=== PATIENT | male | born 1955 | race Hispanic/Latino ===

== ENCOUNTER 2017-10-31 15:37 | Emergency (ER) | payer SELFPAY ==
[~2017-10-31] VITALS: Ht 172.7 cm; Wt 92.1 kg
[2017-10-31 17:24] LABS: BILIRUBIN,URINE NEGATIVE (NEGATIVE); CLARITY,URINE CLEAR (CLEAR); COLOR,URINE YELLOW (YELLOW); KETONES,URINE NEGATIVE (NEGATIVE); LEUKOCYTE ESTERASE ,URINE NEGATIVE (NEGATIVE); NITRITE,URINE NEGATIVE (NEGATIVE); PROTEIN,URINE DIPSTICK 1+ (NEGATIVE); URINE UROBILINOGEN 1 mg/dL (0.2 - 1)
[2017-10-31 17:34] LABS: AMORPHOUS SEDIMENT,URINE FEW (FEW); BACTERIA,URINE RARE /HPF; HYALINE CASTS 0-1 (0-1); MUCUS,URINE FEW (RARE); RBC,URINE 0-5 /HPF (0-5); WBC,URINE (MAN) 0-5 /HPF (0-5)
[2017-10-31 18:01] LABS: BASOPHILS % 0.3 % (0.0-1.0); HEMATOCRIT 40.8 % (38.2-49.6); HEMOGLOBIN 14.2 g/dL (14.0-18.0); LYMPHOCYTES # (AUTO) 0.9 (1.0-3.2); LYMPHOCYTES % 8.9 % (18.0-39.1); MEAN CORPUSCULAR HEMOGLOBIN 30.7 pg (28-32); MEAN CORPUSCULAR HGB CONC 34.8 g/dL (31-35); MEAN CORPUSCULAR VOLUME 88.1 fL (81-99); MONOCYTES # (AUTO) 0.7 (0.2-0.8); MONOCYTES % 7.4 % (4.4-11.3); NEUTROPHILS # (AUTO) 8.1 (2.1-6.9); NEUTROPHILS % 82.9 % (38.7-80.0); PLATELET COUNT 161 x10e3/uL (140-360); RED BLOOD COUNT 4.63 x10e6/uL (4.3-5.7); RED CELL DISTRIBUTION WIDTH 13.3 % (11.7-14.4)
[2017-10-31 18:19] LABS: ALANINE AMINOTRANSFERASE 36 IU/L (0-55); ALBUMIN 3.5 g/dL (3.5-5.0); ALBUMIN/GLOBULIN RATIO 0.9 (0.8-2.0); ALKALINE PHOSPHATASE 90 IU/L (40-150); AMYLASE 66 U/L (25-125); ANION GAP 12.3 mmol/L (8-16); BLOOD UREA NITROGEN 16 mg/dL (7-26); BUN/CREATININE RATIO 16 (6-25); CALCIUM 8.9 mg/dL (8.4-10.2); CARBON DIOXIDE 22 mmol/L (22-29); CHLORIDE 103 mmol/L (98-107); CREATININE, SERUM 0.97 mg/dL (0.72-1.25); EST GLOMERULAR FILTRATION RATE > 60 ML/MIN (60-); GLUCOSE 247 mg/dL (74-118); LIPASE 25 U/L (8-78); POTASSIUM 4.3 mmol/L (3.5-5.1); SODIUM 133 mmol/L (136-145)
--- NOTE | 2017-10-31 18:49 | Diagnostic Imaging Report ---
PROCEDURE:X-RAY ABDOMEN, ACUTE SERIES COMPARISON:None. INDICATIONS:ABDOMINAL PAIN FINDINGS: BOWEL GAS PATTERN:Non-specific bowel gas pattern. FREE AIR:None. CALCIFICATIONS:None significant. LUNGS:Normal for age. MEDIASTINUM:Normal for age. PLEURA:Normal. OTHER:Negative. CONCLUSION: Nonspecific, nonobstructive bowel gas pattern. Celena Perez M.D. Dictated by: Celena Perez M.D. on 10/31/2017 at 18:52 Electronically approved by: Celena Perez M.D. on 10/31/2017 at 18:52
[2017-10-31] MEDS ORDERED: MORPHINE SULFATE 2 MG/ML SYR IV STA (19:29)
[2017-10-31] MEDS ORDERED: ONDANSETRON HCL INJ 2 MG/ML VIAL IV STA (19:29)
[2017-10-31] MEDS ORDERED: SODIUM CHLORIDE 0.9% 1000ML 1,000 ML IV ONE (19:30)
[2017-10-31] MEDS ORDERED: DIATRIZOATE MEGL/DIATRIZOA SOD 30 ML BTL PO ONE (19:38)
[2017-10-31] MEDS ORDERED: IOPAMIDOL 370 MG/ML 200 ML INFUS..BTL INJ ONE (20:23)
[2017-10-31] MEDS ORDERED: SODIUM CHLORIDE 0.9% 50ML 50 ML ONE (20:23)
[2017-10-31] MEDS ORDERED: METFORMIN HCL500 MG PO (20:53)
[2017-10-31] MEDS ORDERED: VASOTEC5 MG PO (20:53)
--- NOTE | 2017-10-31 21:43 | Diagnostic Imaging Report ---
EXAM: CT ABDOMEN/PELVIS W DATE: 10/31/2017 7:29 PM INDICATION: \S\ABD PAIN, H/O BOWEL OBSTRUCTION \S\[id number] \S\2046 \S\Y COMPARISON: 07/01/2015 TECHNIQUE: The abdomen and pelvis were scanned using a multidetector helical scanner. Coronal and sagittal reformations were obtained. Routine protocol performed. IV Contrast: 100 ml Isovue 300/370 FINDINGS: LOWER THORAX: No consolidations LIVER/BILIARY: Hepatic steatosis. No masses. No ductal dilatation. GALLBLADDER: Unremarkable SPLEEN: Unremarkable PANCREAS: Unremarkable ADRENALS: No nodules KIDNEYS: Symmetric perfusion. No enhancing masses. No hydronephrosis. GI TRACT: Mild bowel wall thickening of the right colon and terminal ileum with mucosal hyperemia. Normal appendix. VESSELS: Mild atherosclerotic changes. PERITONEUM/RETROPERITONEUM: No free air or fluid LYMPH NODES: No lymphadenopathy REPRODUCTIVE ORGANS/BLADDER: Unremarkable SOFT TISSUES: Unremarkable BONES: No suspicious bone lesions. IMPRESSION: Mild enterocolitis involving the terminal ileum and right colon, likely infectious or inflammatory. Signed by: Dr Camila Barth MD on 10/31/2017 9:39 PM
[2017-10-31 22:18] VITALS: BP 122/60
== END 2017-10-31 22:50 | disposition home or self-care (01) ==
LOC: ER 15:37
DX: R10.84 Generalized abdominal pain (principal); R19.7 Diarrhea, unspecified; R11.0 Nausea; I10 Essential (primary) hypertension; E11.9 Type 2 diabetes mellitus without complications; K21.9 Gastro-esophageal reflux disease without esophagitis
CPT/HCPCS: 36415; 74022; 74177; 80053; 81001; 82150; 83690; 85025; 96374; 99284; J2270; J2405; J7030; Q9967

== ENCOUNTER 2019-07-17 10:39 | Observation (INO) | payer SELFPAY ==
[~2019-07-17] VITALS: Ht 167.6 cm; Wt 93.0 kg
[~2019-07-17 10:39] MED LIST: METFORMIN HCL500 MG PO; VASOTEC5 MG PO
--- OUTSIDE RECORDS SUMMARY | 2019-07-17 10:42 | XMS REPORT ---
Author Author Admin, [place] Organization Unknown Address Unknown Phone Unavailable PROBLEMS Condition Status Date Provider Notes Vaccine against influenza active Jatin Gandara Allergic rhinitis active Jatin Gandara Erectile dysfunction active Jatin Gandara Leg pain, bilateral active Chapo Quintanilla Hyperlipidemia, mixed active Chapo Quintanilla Hypogonadism, male active Chapo Quintanilla Reflux, esophageal active Chapo Quintanilla Morbid obesity active Chapo Quintanilla Hypertension active Chapo Quintanilla Diabetes mellitus, type II active Chapo Quintanilla ENCOUNTERS Date Type Provider Location Encounter Diagnosis - [facility] Public Health Services UNK - Ambulatory Encounter Jose Guzman [facility] Adult Medicine UNK - Ambulatory Encounter Jose Gomez [facility] Adult Medicine UNK - [facility] Adult Medicine UNK - Ambulatory Encounter Rinal Thomas [employer] [facility] Adult Medicine UNK - Ambulatory Encounter Rinal Thomas [facility] Adult Medicine UNK - Ambulatory Encounter Brittaal Thomas Beaver [facility] Adult Medicine UNK - Ambulatory Encounter Rinal Guzman [employer] [facility] Adult Medicine UNK - Ambulatory Encounter Rinemely Guzman [facility] Adult Medicine UNK - Ambulatory Encounter Jose Gomez [facility] Adult Medicine UNK - Ambulatory Encounter Rinal Guzman [facility] Adult Medicine UNK - Ambulatory Encounter Rinal Guzman [facility] Adult Medicine UNK - Ambulatory Encounter Rinal Guzman [facility] Adult Medicine UNK - Ambulatory Encounter Candelaria Fiore [facility] Transportation Superintendent UNK - Ambulatory Encounter [facility] Public Health Services UNK - Ambulatory Encounter Candelaria Mueller [facility] Adult Medicine UNK - Ambulatory Encounter Jatin Gandara Jatin Gandara [facility] Adult Medicine UNK - Ambulatory Encounter Jatin Gandara Jatin Gandara [facility] Adult Medicine UNK - Ambulatory Encounter Jatin Gandara Jatin Gandara [facility] Adult Medicine UNK - Ambulatory Encounter Jatin Gandara Jatin Romero [facility] Adult Medicine Vaccine against influenza - Ambulatory Encounter Rinal Guzman [facility] Adult Medicine UNK - [facility]ulatory [facility] - [facility] Encounter Humphrey Romero [facility] Adult Medicine UNK - Ambulatory Encounter Jatin Gandara Jatin Gandara [employer] Humphrey Gomez [facility] Adult Medicine UNK - Ambulatory Encounter Jatin Gandara Jatin Gandara [facility] Adult Medicine UNK - Ambulatory Encounter Jatin Gandara Jatin Lastine [facility] Adult Medicine UNK - Ambulatory Encounter Jatin Gandara Jatin Romero [facility] Adult Medicine Erectile dysfunctionAllergic rhinitis - Ambulatory Encounter Jatin Gandara Jatin Gandara [facility] Adult Medicine UNK - Ambulatory Encounter Chapo Quintanilla [employer] Jatin Gandara [facility] Adult Medicine UNK - Ambulatory Encounter Jatin Gandara [facility] Adult Medicine UNK - Ambulatory Encounter Chapo Quintanilla [facility] Adult Medicine UNK - Ambulatory Encounter Chapo Quintanilla Yeimy Arce [facility] Adult Medicine Hypogonadism, maleHyperlipidemia, mixedLeg pain, bilateral - Ambulatory Encounter Chapo NavaLoglindsay [facility] Adult Medicine UNK - Ambulatory Encounter Deborah Quintanilla [facility] - Ambulatory Encounter Chapo Quintanilla [facility] Adult Medicine [facility] - Ambulatory Encounter Chapo Gomez [facility] Adult Medicine Diabetes mellitus, type IIHypertensionMorbid obesityReflux, esophageal - Ambulatory Encounter Jatin Cardenas [facility] Dental K - Ambulatory Encounter Jatin Savage [facility] Dental [facility] VITAL SIGNS No Information Available Allergies No Known Allergy Information REASON FOR REFERRAL No Information Available RESULTS Date Observation Value Provider Reference Range Interpretation Location hemoglobin A1C, blood, as % of total hemoglobin 8.3 % [facility] 4.8-5.6 High blood glucose, random 200 mg/dL Rinal [facility] hemoglobin A1C, blood, as % of total hemoglobin 8.2 % [employer] 4.8-5.6 High hemoglobin A1C, blood, as % of total hemoglobin 8.8 % [facility] 4.8-5.6 High microalbumin/creatinine ratio, urine <6.6 mg/g creat [employer] 0.0-30.0 " microalbumin/total urine volume <3.0 ug/mL [employer] Not Estab. " creatinine, random, urine 45.2 mg/dL [employer] Not Estab. hemoglobin A1C, blood, as % of total hemoglobin 9.8 % [facility] 4.8-5.6 High " alanine aminotransferase (SGPT), serum 61 1/L [facility] 0-44 High " aspartate aminotransferase (SGOT), serum 32 1/L [facility] 0-40 " alkaline phosphatase, serum 159 1/L [facility] 39-117 High " bilirubin, serum, total 0.4 mg/dL [employer] 0.0-1.2 " albumin/globulin ratio, serum 1.5 [employer] 1.2-2.2 " globulin, serum 2.8 [employer] 1.5-4.5 " albumin, serum 4.3 g/dL [employer] 3.6-4.8 " protein, total, serum 7.1 g/dL [employer] 6.0-8.5 " calcium, serum 9.1 mg/dL [employer] 8.6-10.2 " carbon dioxide, venous blood 25 mmol/L [facility] 20-29 " chloride, serum 95 mmol/L [employer] 96-106 Low " potassium, serum 4.8 mmol/L [facility] 3.5-5.2 " sodium, serum 134 mmol/L [employer] 134-144 " urea nitrogen/creatinine ratio, serum 14 [facility] 10-24 " eGFR if 105 mL/min/((173/100).m2) [facility] >59 " Estimated Glomerular Filtration Rate (calc) 91 mL/min/((173/100).m2) [employer] >59 " creatinine, serum 0.91 mg/dL [facility] 0.76-1.27 " urea nitrogen, blood 13 mg/dL [facility] 8-27 " blood glucose, random 360 mg/dL [facility] 65-99 High blood glucose, random 251 mg/dL Josie Romero hemoglobin A1C, blood, as % of total hemoglobin 8.2 % [facility] 4.8-5.6 High " testosterone, serum, free 5.9 pg/mL [employer] 6.6-18.1 Low " testosterone, total 317 ng/dL [facility] 264-916 " LDL cholesterol, serum 103 mg/dL [facility] 0-99 High " very low density lipoproteins 31 mg/dL [facility] 5-40 " HDL cholesterol, serum 37 mg/dL [facility] >39 Low " triglyceride, serum, fasting 156 mg/dL [facility] 0-149 High " cholesterol, serum 171 mg/dL [facility] 100-199 " alanine aminotransferase (SGPT), serum 74 1/L [facility] 0-44 High " aspartate aminotransferase (SGOT), serum 43 1/L [facility] 0-40 High " alkaline phosphatase, serum 114 1/L [facility] 39-117 " bilirubin, serum, total 0.5 mg/dL [employer] 0.0-1.2 " albumin/globulin ratio, serum 1.3 [employer] 1.2-2.2 " globulin, serum 3.2 [employer] 1.5-4.5 " albumin, serum 4.3 g/dL [employer] 3.6-4.8 " protein, total, serum 7.5 g/dL [employer] 6.0-8.5 " calcium, serum 9.5 mg/dL [employer] 8.6-10.2 " carbon dioxide, venous blood 22 mmol/L [employer] 20-29 " chloride, serum 95 mmol/L [facility] 96-106 Low " potassium, serum 4.9 mmol/L [facility] 3.5-5.2 " sodium, serum 136 mmol/L [facility] 134-144 " urea nitrogen/creatinine ratio, serum 11 [employer] 10-24 " eGFR if 96 mL/min/((173/100).m2) [facility] >59 " Estimated Glomerular Filtration Rate (calc) 83 mL/min/((173/100).m2) [employer] >59 " creatinine, serum 0.98 mg/dL [facility] 0.76-1.27 " urea nitrogen, blood 11 mg/dL [facility] 8-27 " blood glucose, random 220 mg/dL [facility] 65-99 High hepatitis B surface antigen Negative [employer] Negative " thyroxine, serum, free 1.15 ng/dL [facility] 0.82-1.77 " thyroid stimulating hormone, serum 5.210 u[iU]/mL [facility] 0.450-4.500 High " hepatitis C antibody, serum 0.2 [employer] 0.0-0.9 " HIV-CMIA (Chemiluminescent Microparticle Immuno Assay) Non Reactive [employer] Non Reactive " vitamin D 25-hydroxy, serum 15.1 ng/mL [facility] 30.0-100.0 Low " rapid plasma reagin antibody, serum Non Reactive [employer] Non Reactive " hemoglobin A1C, blood, as % of total hemoglobin 9.2 % [facility] 4.8-5.6 High " prostate specific antigen 0.4 ng/mL [employer] 0.0-4.0 " testosterone, serum, free 4.7 pg/mL [employer] 6.6-18.1 Low " testosterone, total 254 ng/dL [facility] 264-916 Low " LDL cholesterol, serum 122 mg/dL [facility] 0-99 High " very low density lipoproteins 70 mg/dL [facility] 5-40 High " HDL cholesterol, serum 36 mg/dL [facility] >39 Low " triglyceride, serum, fasting 350 mg/dL [facility] 0-149 High " cholesterol, serum 228 mg/dL [facility] 100-199 High " alanine aminotransferase (SGPT), serum 52 1/L [facility] 0-44 High " aspartate aminotransferase (SGOT), serum 30 1/L [employer] 0-40 " alkaline phosphatase, serum 166 1/L [facility] 39-117 High " bilirubin, serum, total 0.3 mg/dL [employer] 0.0-1.2 " albumin/globulin ratio, serum 1.4 [employer] 1.2-2.2 " globulin, serum 3.1 [employer] 1.5-4.5 " albumin, serum 4.2 g/dL [employer] 3.6-4.8 " protein, total, serum 7.3 g/dL [employer] 6.0-8.5 " calcium, serum 9.7 mg/dL [employer] 8.6-10.2 " carbon dioxide, venous blood 24 mmol/L [employer] 18-29 " chloride, serum 98 mmol/L [employer] 96-106 " potassium, serum 4.7 mmol/L [employer] 3.5-5.2 " sodium, serum 141 mmol/L [employer] 134-144 " urea nitrogen/creatinine ratio, serum 14 [employer] 10-24 " eGFR if 96 mL/min/((173/100).m2) [facility] >59 " Estimated Glomerular Filtration Rate (calc) 83 mL/min/((173/100).m2) [employer] >59 " creatinine, serum 0.98 mg/dL [facility] 0.76-1.27 " urea nitrogen, blood 14 mg/dL [facility] 8-27 " blood glucose, random 220 mg/dL [facility] 65-99 High " immature granulocytes, percentage of total cells, blood 0 % [employer] Not Estab. " basophil count, absolute 0.0 x10E3/uL [facility] 0.0-0.2 " Eosinophil Absolute Count 0.1 X10E3/UL [facility] 0.0-0.4 " monocyte count, blood, automated 0.6 X10E3/UL [employer] 0.1-0.9 " lymphocyte count, blood, automated 2.2 X10E3/UL [employer] 0.7-3.1 " Absolute Neutrophils 3.4 X10E3/UL [employer] 1.4-7.0 " basophils as percent of blood leukocytes 1 % [employer] Not Estab. " eosinophils as percent of blood leukocytes 1 % [employer] Not Estab. " monocytes as percent of blood leukocytes 10 % [facility] Not Estab. " lymphocytes as percent of blood leukocytes 35 % [facility] Not Estab. " neutrophils as percent of blood leukocytes 53 % [facility] Not Estab. " platelet count 184 X10E3/UL [facility] 150-379 " red blood cell distribution width 13.9 % [facility] 12.3-15.4 " mean corpuscular hemoglobin concentration, RBC 34.7 G/DL [facility] 31.5-35.7 " mean corpuscular hemoglobin, RBC 30.6 pg [facility] 26.6-33.0 " mean corpuscular volume, RBC 88 fL [facility] 79-97 " hematocrit, blood 41.2 % [facility] 37.5-51.0 " hemoglobin, blood 14.3 g/dL [facility] 13.0-17.7 " erythrocyte (RBC) count 4.67 X10E6/UL [facility] 4.14-5.80 " leukocyte count, blood 6.4 X10E3/UL [facility] 3.4-10.8 HISTORY OF IMMUNIZATIONS No Information Available HISTORY OF MEDICATION USE Medication Instructions Dates Provider Comments GLIPIZIDE ER 2.5 MG ORAL TABLET EXTENDED RELEASE 24 HOUR take 1 tablet daily (take 30 min before your largest meal) Rinal Guzman austrian JANUVIA 100 MG ORAL TABLET take 1 tablet daily - Rinal Guzman austrian label VIAGRA 100 MG ORAL TABLET 1 By Mouth 1 hour before sex Jatin Gandara LORATADINE 10 MG ORAL TABLET 1 By Mouth once a day as needed for allergies <BRITISH LABEL> Jatin Gandara IGLUCOSE TEST STRIPS IN VITRO STRIP use for testing sugar daily Jatin Gandara MIRALAX ORAL PACKET 1 packet in 8 oz of water daily for constipation <BRITISH LABEL> Jatin Gandara MOBIC 7.5 MG ORAL TABLET 1-2 tab by mouth daily Chapo Quintanilla OMEPRAZOLE [address] TAKE ONE CAPSULE BY MOUTH EVERY DAY Chikis Bryant [employer]herence, AUGMENTIN 875-125 MG ORAL TABLET 1 by mouth twice a day - Chapo Dohertyarbeder DEXILANT 30 MG ORAL CAPSULE DELAYED RELEASE One cap By Mouth Every Day - Chapo Dohertyarbeder LISINOPRIL 10 MG ORAL TABLET 1 by mouth every day Chapo Doherytarbeder METFORMIN HCL 1000 MG ORAL TABLET 1 by mouth twice a day Brittaal Guzman austrian label SOCIAL HISTORY Date Observation Value Provider time of call 02/08/2019 8:39 AM Shantell Palencia Exercise Program Referral Roland Guzman " Weight Management Counseling Provided Roland Guzman " Nutrition intervention Roland Guzman " drug use, illicit no Humphrey Gomez " alcohol use no Humphrey Gomez " social history reviewed E&M reviewed today Humphrey Gomez " is there any chance that you could be ? No Humphrey Gomez " assessment of health literacy ([facility] 2014 Standards, 3C10) Adequate Humphrey Gomez " passive cigarette smoke exposure No Humphrey Gomez " smoking status never smoker Humphrey Gomez Exercise Program Referral Roland Beaver " Weight Management Counseling Provided Roland Beaver " Nutrition intervention T Yamisela Beaver " drug use, illicit no Yamisela Beaver " alcohol use no Yamisela Beaver " social history reviewed E&M reviewed today Yamisela Beaver " assessment of health literacy ([facility] 2014 Standards, 3C10) Adequate Yamisela Beaver " passive cigarette smoke exposure No Yamisela Beaver " smoking status never smoker Yamisela Beaver Exercise Program Referral T Rinal Guzman " Weight Management Counseling Provided T Rinal Guzman " Nutrition intervention T Rinal Guzman " drug use, illicit no Humphrey Gomez " alcohol use no Najuniorly Jason " social history reviewed E&M reviewed today Humphrey Gomez " is there any chance that you could be ? No Humphrey Gomez " assessment of health literacy ([facility] 2014 Standards, 3C10) Adequate Humphrey Gomez " passive cigarette smoke exposure Yes Humphrey Gomez " smoking status never smoker Humphrey Gomez time of call 05/04/2018 3:23 PM Shantell Palencia social history reviewed E&M reviewed today Jatin Gandara " Exercise Program Referral T Jatin Gandara " Weight Management Counseling Provided T Jatin Gandara " Nutrition intervention T Jatin Gandara " drug use, illicit no Josie Romero " alcohol use no Josie Romero " is there any chance that you could be ? No Josie Romero " assessment of health literacy ([facility] 2014 Standards, 3C10) Adequate Josie Romero " smoking status never smoker Josie Romero Exercise Program Referral T Rinal Guzman " Weight Management Counseling Provided T Rinal Guzman " Nutrition intervention T Rinal Guzman " drug use, illicit no Humphrey Gomez " alcohol use no Humphrey Gomez " social history reviewed E&M reviewed today Humphrey Gomez " is there any chance that you could be ? No Humphrey Gomez " assessment of health literacy ([facility] 2014 Standards, 3C10) Adequate Humphrey Gomez " passive cigarette smoke exposure Yes Humphrey Gomez " smoking status never smoker Humphrey Gomez Exercise Program Referral T Jatin Gandara " Weight Management Counseling Provided T Jatin Gandara " Nutrition intervention T Jatin Gandara " drug use, illicit no Channin Nick " alcohol use no Channangy Romero " is there any chance that you could be ? No Channin Nick " assessment of health literacy ([facility] 2014 Standards, 3C10) Adequate Josie Romero " smoking status never smoker Josie Romero social history reviewed E&M reviewed today Yeimy Arce " drug use, illicit no Yeimy Arce " alcohol use no Yeimy Arce " passive cigarette smoke exposure Yes Yeimy Arce " smoking status never smoker Yeimy Arce " is there any chance that you could be ? No Yeimy Arce sexual orientation Heterosexual Sandrasophia Gomez " sex at Male Humphrey Gomez " Occupation #1 ironworker apprentice Humphrey Gomez " patient considered to be homeless No Humphrey Gomez " drug use, illicit no Leisacamilocorinne Gomez " alcohol use no Leisamagaly Gomez " passive cigarette smoke exposure Yes Humphrey Gomez " smoking status never smoker Humphrey Gomez " assessment of health literacy ([facility] 2014 Standards, 3C10) Adequate Humphrey Gomez " social history reviewed E&M reviewed today Humphrey Jason " is there any chance that you could be ? No Humphrey Gomez FUNCTIONAL STATUS No Information Available MENTAL STATUS Date Observation Value Provider assessment of judgment and insight E&M intact Rinal Guzman " mental status examination: orientation E&M oriented to time, place, and person Rinal Guzman " assessment of mood and affect E&M no depression, anxiety, or agitation Rinal Guzman " Generalized Anxiety Disorder Questionnaire - Question 2 0 Humphrey Gomez " Generalized Anxiety Disorder Questionnaire - Question 1 0 Humphrey Gomez assessment of judgment and insight E&M intact Rinal Guzman " mental status examination: orientation E&M oriented to time, place, and person Rinal Guzman " assessment of mood and affect E&M no depression, anxiety, or agitation Rinal Guzman " Generalized Anxiety Disorder Questionnaire - Question 2 0 Guanako Beaver " Generalized Anxiety Disorder Questionnaire - Question 1 0 Guanako Beaver assessment of judgment and insight E&M intact Rinal Guzman " mental status examination: orientation E&M oriented to time, place, and person Rinal Guzman " assessment of mood and affect E&M no depression, anxiety, or agitation Rinal Guzman " Generalized Anxiety Disorder Questionnaire - Question 2 0 Humphrey Gomez " Generalized Anxiety Disorder Questionnaire - Question 1 0 Humphrey Gomez assessment of judgment and insight E&M intact Rinal Guzman " mental status examination: orientation E&M oriented to time, place, and person Rinemely Guzman " assessment of mood and affect E&M no depression, anxiety, or agitation Jose Guzman Generalized Anxiety Disorder Questionnaire - Question 2 0 Josie Romero " Generalized Anxiety Disorder Questionnaire - Question 1 0 Josie Romero Generalized Anxiety Disorder Questionnaire - Question 2 0 Humphrey Gomez " Generalized Anxiety Disorder Questionnaire - Question 1 0 Humphrey Gomez assessment of mood and affect E&M no depression, anxiety, or agitation Jatin Gandara " Generalized Anxiety Disorder Questionnaire - Question 2 0 Josie Romero " Generalized Anxiety Disorder Questionnaire - Question 1 0 Josie Romero mental status examination: orientation E&M oriented to time, place, and person Chapo Quintanilla " assessment of mood and affect E&M no depression, anxiety, or agitation Chapo Quintanilla " Generalized Anxiety Disorder Questionnaire - Question 2 0 Yeimy Arce " Generalized Anxiety Disorder Questionnaire - Question 1 0 Yeiym Arce assessment of judgment and insight E&M intact Chapo Quintanilla " mental status examination: orientation E&M oriented to time, place, and person Chapo Quintanilla " assessment of mood and affect E&M no depression, anxiety, or agitation Chapo Quintanilla " Generalized Anxiety Disorder Questionnaire - Question 2 0 Humphrey Gomez " Generalized Anxiety Disorder Questionnaire - Question 1 0 Humphrey Gomez MEDICAL EQUIPMENT No Information Available FAMILY HISTORY No Information Available INSURANCE PROVIDERS Payer name Policy type / Coverage type Covered republican ID Sliding Fee - Cat 1 Commercial insurance company [id number] Sliding Fee - Cat 1 Commercial insurance company [id number] ADVANCE DIRECTIVES No Information Available TREATMENT PLAN Date Name Microalb/Creat Ratio, [facility] Hemoglobin A1c Hemoglobin A1c Hemoglobin A1c Microalb/Creat Ratio, [facility] Hemoglobin A1c Microalb/Creat Ratio, [facility] Hemoglobin A1c Comp. Metabolic Panel (14) Testosterone, Free, Direct Testosterone,Free and Total Hemoglobin A1c Comp. Metabolic Panel (14) Lipid Panel PSA, Serum (Serial Monitor) Vitamin D, 25-Hydroxy Microalb/Creat Ratio, [facility] Urinalysis, Routine Testosterone, Free, Direct Testosterone,Free and Total HIV 1/2 ANTIGEN/ANTIBODY, FOURTH GENERATION W/RFL RPR, Rfx Qn RPR/Confirm TP HCV Antibody HBsAg Screen Ct, Ng, Trich vag by RUDOLPH (APTIMA) TSH Rfx on Abnormal to Free T4 Hemoglobin A1c Lipid Panel Comp. Metabolic Panel (14) CBC With Differential/Platelet Ofc Vst, Est Level III Vision Ofc Vst, Est Level III Finger Stick Glucose Ofc Vst, Est Level IV Est Patient Exp Problem - 18007 INFLUENZA VACCINE QUADRIVALENT 3 YRS PLUS IM Admin of Vaccine - Injection - 1 Ofc Vst, Est Level IV Prescription Assistance (Non-HIV) Vision Est Patient Detailed - 04587 Est Patient Exp Problem - 36035 Est Patient Exp Problem - 52474 HISTORY OF PROCEDURES Procedure Date Procedure Name Provider Procedure Notes Status Finger Stick Glucose Rinal Guzman completed GOALS No Information Available HEALTH CONCERNS No Information Available
--- OUTSIDE RECORDS SUMMARY | 2019-07-17 10:42 | XMS REPORT ---
Author Author Admin, [place] Organization Unknown Address Unknown Phone Unavailable PROBLEMS [...] Provider Location Encounter Diagnosis - Ambulatory Encounter Jose Guzman [facility] UN[place] - Ambulatory Encounter Jose Gomez [facility] Adult [facility] UNK - Ambulatory Encounter Jose Guzman [facility] Adult Medicine UNK - Ambulatory Encounter Rinal Thomas [facility] Adult Medicine UNK - Ambulatory Encounter Jose Guzman [facility] Adult Medicine UNK - Ambulatory Encounter Shantell Palencia [facility] Public Health Services UNK - Ambulatory Encounter Rinemely Guzman [facility] Adult Medicine UNK - [facility] UNK - [facility] - [facility] Encounter Rinal Thomas [facility] Adult Medicine UNK - Ambulatory Encounter Rinal Guzman [facility] Adult Medicine UNK - Ambulatory Encounter Rinal Guzman Kennalouis Beaver LM Adult Medicine UNK - Ambulatory Encounter Rinal Guzman [facility] Adult Medicine UNK - Ambulatory Encounter Rinal Guzman [facility] Adult Medicine UNK - Ambulatory Encounter Rinal Guzman Humphrey Gomez LM Adult Medicine UNK - Ambulatory Encounter Rinal Guzman [facility] Adult Medicine UNK - Ambulatory Encounter Rinal Guzman [facility] Adult Medicine UNK - Ambulatory Encounter Rinal Guzman [facility] LM Adult Medicine UNK - Ambulatory Encounter Candelaria Fiore [facility] Clinical Supervisor UNK - Ambulatory Encounter Shantell Palencia [facility] Public Health Services UNK - Ambulatory Encounter Candelaria Vences [facility] Adult Medicine UNK - Ambulatory Encounter Jatin Archer LM Adult Medicine UNK - Ambulatory Encounter Jatin Gandara [facility] Adult Medicine UNK - Ambulatory Encounter Jatin Gandara [facility] Adult Medicine UNK - Ambulatory Encounter Jatin Romero [facility] Adult Medicine Vaccine against influenza - Ambulatory Encounter Rinal Guzman [facility] Adult Medicine UNK - Ambulatory Encounter Rinal Thomas Champion [facility] Adult Medicine UNK - Ambulatory Encounter Humphrey Romero [facility] Adult Medicine UNK - Ambulatory Encounter Jatin Nichol Floreszjely Jason [facility] Adult Medicine UNK - Ambulatory Encounter Jatin Gandara LM Adult Medicine UNK - Ambulatory Encounter Jatin Steiner Gandara [facility] Adult Medicine UNK - Ambulatory Encounter Jatin Romero [facility] Adult Medicine Erectile dysfunctionAllergic rhinitis - Ambulatory Encounter Jatin Steiner Gandara [facility] Adult Medicine UNK - Ambulatory Encounter Chapo Nava[facility]ic Jatin Lastine Jatin Gandara LM Adult Medicine UNK - Ambulatory Encounter Jatin Lastine LM Adult Medicine UNK - Ambulatory Encounter Chapo Quintanilla [facility] Adult Medicine UNK - Ambulatory Encounter Chapo Arce [facility] Adult Medicine Hypogonadism, maleHyperlipidemia, mixedLeg pain, bilateral - Ambulatory Encounter Chapo Archer [facility] Adult Medicine UNK - Ambulatory Encounter Deborah Quintanilla [facility] UNK - Ambulatory Encounter Chapo Quintanilla [facility] Adult Medicine UNK - Ambulatory Encounter Chapo Gomez [facility] Adult [facility] Diabetes mellitus, type IIHypertensionMorbid obesityReflux, esophageal - Ambulatory Encounter Jatin Cardenas LM Dental UNK - Ambulatory Encounter Jatin Savage [facility] Dental UNK VITAL SIGNS No Information Available Allergies No Known Allergy Information REASON FOR REFERRAL No Information Available RESULTS Date Observation Value Provider Reference Range Interpretation Location microalbumin/creatinine ratio, urine 4.4 MG/G CREAT [facility] 0.0-30.0 " microalbumin/total urine volume 4.0 mg/L [facility] Not Estab. " creatinine, random, urine 91.4 mg/dL [facility] Not Estab. hemoglobin A1C, blood, as % of total hemoglobin 7.6 % [facility] 4.8-5.6 High hemoglobin A1C, blood, as % of total hemoglobin 8.3 % [facility] 4.8-5.6 High blood glucose, random 200 mg/dL [facility] hemoglobin A1C, blood, as % of total [...] MEDICATION USE Medication Instructions Dates Provider Comments TESSALON PERLES 100 MG ORAL CAPSULE 1 by mouth 3 times a day as needed for [facility] DM 30-2-10 MG/5ML ORAL SYRUP take 10 mL By Mouth every 4 hours as needed for severe cough [facility] [place] GLIPIZIDE ER 2.5 MG ORAL TABLET EXTENDED RELEASE 24 HOUR take 1 tablet daily (take 30 min before your largest meal) [facility] [place] JANUVIA 100 MG ORAL TABLET take 1 tablet daily - [facility] [place] island[place] label VIAGRA 100 MG ORAL TABLET 1 By Mouth 1 hour before sex Jatin Gandara LORATADINE 10 MG ORAL TABLET 1 By Mouth once a day as needed for allergies <INDONESIAN LABEL> Jatin Gandara IGLUCOSE TEST STRIPS IN VITRO STRIP use for testing sugar daily Jatin Gandara MIRALAX ORAL PACKET 1 packet in 8 oz of water daily for constipation <INDONESIAN LABEL> Jatin Gandara MOBIC 7.5 MG ORAL [...] TABLET 1 by mouth every day Chapo Dohertyarbeder METFORMIN HCL 1000 MG ORAL TABLET 1 by mouth twice a day Rinal Guzman [place]rit[place] islander label SOCIAL HISTORY Date Observation Value Provider Exercise Program Referral T Jose Guzman " Weight Management Counseling Provided T Jose Guzman " Nutrition intervention T Jose Guzman " drug use, illicit no Humphrey Gomez " alcohol use no Humphrey Gomez " social history reviewed E&M reviewed today Humphrey Gomez " is there any chance that you could be ? No Humphrey Gomez " assessment of health literacy ([facility] 2014 Standards, 3C10) Adequate Humphrey Gomez " passive cigarette smoke exposure No Humphrey Gomez " smoking status never smoker Humphrey Gomez time of call 02/08/2019 8:39 AM Shantell Palencia Exercise Program Referral T Jose Guzman " Weight Management Counseling Provided T Jose Guzman " Nutrition intervention T Brittaal Guzman " drug use, illicit no Humphrey Gomez " alcohol use no Marvinly Jason " social history reviewed E&M reviewed today Humphrey Gomez " is there any chance that you could be ? No Humphrey Gomez " assessment of health literacy ([facility] 2014 Standards, 3C10) Adequate Humphrey Gomez " passive cigarette smoke exposure No Marvinly Jason " smoking status never smoker Humphrey Gomez Exercise Program Referral T Guanako Beaver " Weight Management Counseling Provided T Guanako Beaver " Nutrition intervention T Guanako Beaver " drug use, illicit no Guanako Beaevr " alcohol use no Yamisela Beaver " social history reviewed E&M reviewed today Guanako Beaver " assessment of health literacy ([facility] 2014 Standards, 3C10) Adequate Guanako Beaver " passive cigarette smoke exposure No Guanako Beaver " smoking status never smoker Guanako Beaver Exercise Program Referral T Rinal Guzman " Weight Management Counseling Provided T Rinal Guzman " Nutrition intervention T Rinal Guzman " drug use, illicit no Humphrey Gomez " alcohol use no Humphrey Gomez " social history reviewed E&M reviewed today Humphrey Gomez " is there any chance that you could be ? No Humphrey Gomez " assessment of health literacy ([facility] 2014 Standards, 3C10) Adequate Humphrey Gomez " passive cigarette smoke exposure Yes Humphrey Gomez " smoking status never smoker Sandrasophia Jason time of call 05/04/2018 3:23 PM Shantell [...] Josie Romero " assessment of health literacy ([facility] 2014 Standards, 3C10) Adequate Josie Romero " smoking status never smoker Josie Romero Exercise Program Referral T Rinal Guzman " Weight Management Counseling Provided T Rinal Guzman " Nutrition intervention T Rinal Guzman " drug use, illicit no Humphrey Gomez " alcohol use no Sandrasophia Gomez " social history reviewed E&M reviewed today Marvincorinne Gomez " is there any chance that you could be ? No Humphrey Jason " assessment of health literacy ([facility] 2014 Standards, 3C10) Adequate Humphrey Gomez " passive cigarette smoke exposure Yes Humphrey Gomez " smoking status never smoker Sandrasophia Jason Exercise Program Referral T Jatin Gandara " Weight Management Counseling Provided T Jatin Gandara " Nutrition intervention T Jatin Gandara " drug use, illicit no Channin Nick " alcohol use no Channin Nick " is there any chance that you could be ? 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 No Humphrey Gomez " drug use, illicit no Humphrey Gomez " alcohol use no Humphrey Gomez " passive cigarette smoke exposure Yes Humphrey Gomez " smoking status never smoker Leisamagaly Jason " assessment of health literacy ([facility] 2014 Standards, 3C10) Adequate Marvincorinne Jason " social history reviewed E&M reviewed [...] Anxiety Disorder Questionnaire - Question 1 0 Yeimy Arce assessment of judgment and insight E&M [...] name Policy type / Coverage type Covered democrat ID Sliding Fee - Cat 1 Commercial insurance [employer] [id number] Sliding Fee - Cat 1 Commercial insurance [employer] [id number] ADVANCE DIRECTIVES No Information Available TREATMENT PLAN Date Name Hemoglobin A1c Microalb/Creat Ratio, [facility] Hemoglobin A1c Hemoglobin A1c Hemoglobin A1c Microalb/Creat Ratio, [facility] Ur Hemoglobin A1c Microalb/Creat Ratio, [facility] Hemoglobin A1c Comp. Metabolic Panel (14) Testosterone, [...] With Differential/Platelet Ofc Vst, Est Level III Ofc Vst, Est Level III Vision Ofc Vst, Est Level III Finger Stick Glucose Ofc Vst, Est Level IV Est Patient Exp Problem - 33024 INFLUENZA VACCINE QUADRIVALENT 3 YRS PLUS IM Admin of Vaccine - Injection - 1 Ofc Vst, Est Level IV Prescription Assistance (Non-HIV) Vision Est Patient Detailed - 53995 Est Patient Exp Problem - 26764 Est Patient Exp Problem - 23416 HISTORY OF PROCEDURES Procedure Date Procedure Name Provider Procedure Notes Status Finger Stick Glucose Rinal Guzman completed GOALS No Information Available HEALTH CONCERNS No Information Available
--- OUTSIDE RECORDS SUMMARY | 2019-07-17 10:42 | XMS REPORT ---
Author Author Admin, [place] Organization Unknown Address Unknown Phone Unavailable PROBLEMS [...] Encounter Diagnosis - Ambulatory Encounter Jose Guzman [facility] [place] - Ambulatory Encounter Jose Gomez [facility] UNK - Ambulatory Encounter Jose Guzman [facility] UNK - Ambulatory Encounter Rinal Thomas [facility] [place] Medicine UNK - Ambulatory Encounter Jose Guzman [facility] Adult Medicine UNK - Ambulatory Encounter Shantell Palencia [facility] Public Health Services UNK - Ambulatory Encounter Rinemely Guzman [facility] Adult Medicine UNK - Ambulatory Encounter [facility] CenterMir[facility] Medicine UNK - Ambulatory En[facility] - Ambulatory Encounter Rinal Thomas [facility] Adult Medicine UNK - Ambulatory Encounter Rinal [...] Medicine UNK - Ambulatory Encounter Candelaria Fiore [facility] Vault Teller UNK - Ambulatory Encounter Shantell Palencia [facility] Public Health Services UNK - Ambulatory Encounter Candelaria Vences [facility] Adult Medicine UNK - Ambulatory Encounter Jatin Archer LM Adult Medicine UNK - Ambulatory Encounter Jatin Gandara [facility] Adult Medicine UNK - Ambulatory Encounter Jatin Gandara [facility] Adult Medicine UNK - Ambulatory Encounter Jatin Romero [facility] Adult Medicine Vaccine against influenza - Ambulatory Encounter Rinal Guzman [facility] Adult Medicine UNK - Ambulatory Encounter Rinal Thomas Champion [facility] Adult Medicine UNK - Ambulatory Encounter Humphrey Romero [facility] Adult Medicine UNK - Ambulatory Encounter Jatin Nichol Floreszjely Jason [facility] Adult Medicine UNK - Ambulatory Encounter Jatin Gandara LM Adult Medicine UNK - Ambulatory Encounter Jatin Steiner Gandara [facility] Adult Medicine UNK - Ambulatory Encounter Jatin Romero [facility] Adult Medicine Erectile dysfunctionAllergic rhinitis - Ambulatory Encounter Jatin Steiner Gandara [facility] Adult Medicine UNK - Ambulatory Encounter Chapo [facility] Jatin Lastine Jatin Gandara LM Adult Medicine UNK - Ambulatory Encounter Jatin aLstine LM Adult Medicine UNK - Ambulatory Encounter Chapo Quintanilla [facility] Adult Medicine UNK - Ambulatory Encounter Chapo Arce [facility] Adult Medicine Hypogonadism, maleHyperlipidemia, mixedLeg pain, bilateral - Ambulatory Encounter Chapo Archer [facility] Adult Medicine UNK - Ambulatory Encounter Deborah Quintanilla [facility] UNK - Ambulatory Encounter Chapo Quintanilla [facility] Adult Medicine UNK - Ambulatory Encounter Chapo Gomez [facility] Adult Medicine Diabetes mellitus, type IIHypertensionMorbid obesityReflux, esophageal - Ambulatory Encounter Jatin Cardenas LM Dental UNK - Ambulatory Encounter Jatin Savage [facility] Dental UNK VITAL SIGNS No Information Available [...] 4.8-5.6 High blood glucose, random 200 mg/dL [facility] Gu[facility] hemoglobin A1C, blood, as % of [...] times a day as needed for cough [facility] BROMFED DM 30-2-10 MG/5ML ORAL SYRUP take 10 mL By Mouth every 4 hours as needed for severe cough [facility] marshallese GLIPIZIDE ER 2.5 MG ORAL TABLET EXTENDED RELEASE 24 HOUR take 1 tablet daily (take 30 min before your largest meal) [facility]aSaint [facility] Centerel marshallese JANUVIA 100 MG ORAL TABLET take 1 tablet daily - [facility] marshallese label VIAGRA 100 MG ORAL TABLET 1 By Mouth 1 hour before sex Jatin Gandara LORATADINE 10 MG ORAL TABLET 1 By Mouth once a day as needed for allergies <BULGARIAN LABEL> Jatin Gandara IGLUCOSE TEST STRIPS IN VITRO STRIP use for testing sugar daily Jatin Gandara MIRALAX ORAL PACKET 1 packet in 8 oz of water daily for constipation <BULGARIAN LABEL> Jatin Gandara MOBIC 7.5 MG ORAL [...] by mouth twice a day Rinal Guzman marshallese label SOCIAL HISTORY Date Observation Value Provider [...] Humphrey Gomez " assessment of health literacy ([facility] 2014 Standards, 3C10) Adequate Humphrey [...] Humphrey Gomez " assessment of health literacy ([facility] 2014 Standards, 3C10) Adequate Humphrey Gomez " passive cigarette smoke exposure No Marvinly Jason " smoking status never smoker Humphrey Gomez Exercise Program Referral T Guanako Beaver " Weight Management Counseling Provided T Guanako Beaver " Nutrition intervention T Guanako Beaver " drug use, illicit no Guanako Beaver " alcohol use no Yamisela Beaver " social history reviewed E&M reviewed today Guanako Beaver " assessment of health literacy ([facility] 2014 Standards, 3C10) Adequate Guanako Beaver " [...] Humphrey Gomez " assessment of health literacy ([facility] 2014 Standards, 3C10) Adequate Humphrey Gomez " passive cigarette smoke exposure Yes Humphrey Gomez " smoking status never smoker Sandrasophia Jason time of call 05/04/2018 3:23 PM Shantell Palencia social history reviewed E&M reviewed today Jatin Gandara " Exercise Program Referral T Jatin Gandara " Weight Management Counseling Provided T Jtain Gandara " Nutrition intervention T Jatin Gandara " drug use, illicit no Josie Romero " alcohol use no Josie Romero " is there any chance that you could be ? 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 No Humphrey Gomez " drug use, illicit no Humphrey Gomez " alcohol use no Humphrey Gomez " passive cigarette smoke exposure Yes Humphrey Gomez " smoking status never smoker Leisamagaly Jason " assessment of health literacy ([facility] 2014 Standards, 3C10) Adequate Marvincorinne Jason " [...] name Policy type / Coverage type Covered constitution party ID Sliding Fee - Cat 1 Commercial insurance [employer] [id number] Sliding Fee - Cat 1 Commercial insurance [employer] [id number] ADVANCE DIRECTIVES No Information Available TREATMENT PLAN Date Name Hemoglobin A1c Microalb/Creat Ratio, [facility] Hemoglobin A1c Hemoglobin A1c Hemoglobin A1c Microalb/Creat Ratio, [facility] Ur Hemoglobin A1c Microalb/Creat Ratio, [facility] Hemoglobin A1c Comp. Metabolic Panel (14) Testosterone, [...] Level IV Est Patient Exp Problem - 89457 INFLUENZA VACCINE QUADRIVALENT 3 YRS PLUS IM Admin of Vaccine - Injection - 1 Ofc Vst, Est Level IV Prescription Assistance (Non-HIV) Vision Est Patient Detailed - 01922 Est Patient Exp Problem - 38853 Est Patient Exp Problem - 93750 HISTORY OF PROCEDURES Procedure Date Procedure Name Provider Procedure Notes Status Finger Stick Glucose Rinal Guzman completed GOALS No Information Available HEALTH CONCERNS No Information Available
[2019-07-17] MEDS ORDERED: SODIUM CHLORIDE 0.9% 1000ML 1,000 ML IV STA (10:48)
[2019-07-17] MEDS ORDERED: ASPIRIN 81 MG CHEW TAB PO STA (10:48)
[2019-07-17] MEDS ORDERED: ASPIRIN 81 MG CHEW TAB PO ONE ×2 (11:00→12:15)
[2019-07-17 11:09] LABS: BASOPHILS # (AUTO) 0.1 (0.0-0.1); BASOPHILS % 0.9 % (0.0-1.0); EOSINOPHILS # (AUTO) 0.2 (0.0-0.4); HEMATOCRIT 42.3 % (38.2-49.6); HEMOGLOBIN 14.5 g/dL (14.0-18.0); LYMPHOCYTES # (AUTO) 2.1 (1.0-3.2); MEAN CORPUSCULAR HEMOGLOBIN 30.5 pg (28-32); MEAN CORPUSCULAR HGB CONC 34.3 g/dL (31-35); MEAN CORPUSCULAR VOLUME 88.9 fL (81-99); MONOCYTES # (AUTO) 0.5 (0.2-0.8); NEUTROPHILS # (AUTO) 4.7 (2.1-6.9); NEUTROPHILS % 61.8 % (38.7-80.0); PLATELET COUNT 219 x10e3/uL (140-360); RED BLOOD COUNT 4.76 x10e6/uL (4.3-5.7); RED CELL DISTRIBUTION WIDTH 12.8 % (11.7-14.4)
[2019-07-17 11:40] LABS: ALANINE AMINOTRANSFERASE 50 IU/L (0-55); ALBUMIN 3.8 g/dL (3.5-5.0); ALBUMIN/GLOBULIN RATIO 0.9 (0.8-2.0); ALKALINE PHOSPHATASE 131 IU/L (40-150); ANION GAP 13.7 mmol/L (8-16); BLOOD UREA NITROGEN 10 mg/dL (7-26); BUN/CREATININE RATIO 11 (6-25); CALCIUM 9.1 mg/dL (8.4-10.2); CARBON DIOXIDE 22 mmol/L (22-29); CHLORIDE 102 mmol/L (98-107); CREATINE KINASE 62 IU/L (30-200); EST GLOMERULAR FILTRATION RATE > 60 ML/MIN (60-); GLUCOSE 179 mg/dL (74-118); POTASSIUM 4.7 mmol/L (3.5-5.1); SODIUM 133 mmol/L (136-145)
--- NOTE | 2019-07-17 11:43 | Diagnostic Imaging Report ---
EXAMINATION: PA and lateral views of the chest. COMPARISON: None CLINICAL HISTORY: Left-sided chest pain DISCUSSION: Lung volumes are low with patchy opacities in the lung bases. No pleural effusion or pneumothorax. Mild enlargement of the cardiac silhouette with tortuous thoracic aorta. No overt pulmonary edema. No acute osseous abnormalities. IMPRESSION: Low lung volumes with vascular crowding or subsegmental atelectasis in the bases. Enlargement of the cardiac silhouette, likely accentuated by low lung volumes. Signed by: Dr. Chapo Kirby M.D. on 07/17/2019 11:41 AM
[2019-07-17] MEDS ORDERED: ONDANSETRON HCL INJ 2MG/ML 2ML 2 MG/ML VIAL IV PRN (12:15)
[2019-07-17] MEDS ORDERED: JANUVIA100 MG (12:31)
[2019-07-17] MEDS ORDERED: BROMPHENIR-PSE118 ML (12:31)
[2019-07-17] MEDS ORDERED: METFORMIN HCL1000 MG (12:31)
[2019-07-17] MEDS ORDERED: LISINOPRIL10 MG (12:31)
[2019-07-17] MEDS ORDERED: BENZONATATE100 MG (12:31)
[2019-07-17] MEDS ORDERED: GLIPIZIDE ER2.5 MG (12:31)
[2019-07-17] MEDS ORDERED: OMEPRAZOLE40 MG (12:31)
[2019-07-17] MEDS: MORPHINE SULFATE INJ 4 MG/ML INJ 1ML IV PRN ×2 (12:43→19:38)
--- NOTE | 2019-07-17 14:31 | NUR ---
COOK CHILI IN ROOM
[2019-07-17] MEDS ORDERED: DEXTROSE 50% SYRINGE 50 ML IV PRN (16:00)
[2019-07-17] MEDS: INSULIN REGULAR, HUMAN 100 UNIT/1 ML 3ML VIAL SQ SCH ×2 (16:30→21:00)
[2019-07-17 17:00] VITALS: BP 137/80
[2019-07-17 17:42] VITALS: BP 137/80
[2019-07-17 18:09] VITALS: BP 137/80
[2019-07-17 19:37] LABS: CREATINE KINASE 60 IU/L (30-200)
--- NOTE | 2019-07-17 19:39 | NUR ---
REPORT RECEIVED FROM DAY RN. PT IS ALERT AND ORIENTED X3. PT IS ARMENIAN SPEAKING. RESPIRATIONS EVEN And UNLABORED. 20 G SL IN LEFT HAND INTACT. PT RESTING IN BED SEMI-FOWLERS POSITION. PT REPORT CHEST PAIN 5/10 ON LEFT SIDE OF CHEST WHICH WORSE WHEN TAKE BREATH IN. PT REPORTS ON LISINOPRIL 10MG DAILY AT 12 N. PT DID NOT TAKE MED TODAY.CALL LIGHT WITHIN REACH. BED LOCKED IN LOW POSITION. TELE MONITOR ON.
--- NOTE | 2019-07-17 19:50 | NUR ---
PT REPORT CHEST PAIN WAS 5/10. MORPHINE 4MG GIVEN IV ORDFERED AT 1938. PT REPORT PAIN 2/10 AFTER MORPHINE. WILL CONTINUE TO MONITOR B/P, HR AND PAIN.
[2019-07-17 20:00] VITALS: BP 154/82
[2019-07-17 21:00] VITALS: BP 154/82
[2019-07-17] MEDS ORDERED: ACETAMINOPHEN 325 MG TAB PO PRN (22:00)
[2019-07-17] MEDS ORDERED: HYDRALAZINE HCL 20 MG/ML VIAL IV PRN (22:00)
[2019-07-18 00:32] VITALS: BP 136/77
[2019-07-18 03:51] LABS: BASOPHILS # (AUTO) 0.1 (0.0-0.1); BASOPHILS % 0.6 % (0.0-1.0); EOSINOPHILS # (AUTO) 0.2 (0.0-0.4); EOSINOPHILS % 2.1 % (0.0-6.0); HEMATOCRIT 40.2 % (38.2-49.6); LYMPHOCYTES # (AUTO) 2.1 (1.0-3.2); LYMPHOCYTES % 25.1 % (18.0-39.1); MEAN CORPUSCULAR HEMOGLOBIN 30.7 pg (28-32); MEAN CORPUSCULAR HGB CONC 34.8 g/dL (31-35); MEAN CORPUSCULAR VOLUME 88.2 fL (81-99); MONOCYTES # (AUTO) 0.6 (0.2-0.8); MONOCYTES % 7.5 % (4.4-11.3); NEUTROPHILS # (AUTO) 5.5 (2.1-6.9); NEUTROPHILS % 64.3 % (38.7-80.0); PLATELET COUNT 212 x10e3/uL (140-360); RED BLOOD COUNT 4.56 x10e6/uL (4.3-5.7); RED CELL DISTRIBUTION WIDTH 13.1 % (11.7-14.4)
[2019-07-18 04:00] VITALS: BP 127/73
[2019-07-18 04:08] LABS: CREATINE KINASE 55 IU/L (30-200)
[2019-07-18 04:09] LABS: ANION GAP 10.2 mmol/L (8-16); BLOOD UREA NITROGEN 11 mg/dL (7-26); BUN/CREATININE RATIO 13 (6-25); CALCIUM 9.1 mg/dL (8.4-10.2); CARBON DIOXIDE 26 mmol/L (22-29); CHLORIDE 101 mmol/L (98-107); CHOL/HDL RATIO 5.9 (3.9-4.7); CHOLESTEROL 199 MD/DL (0-199); CREATININE, SERUM 0.85 mg/dL (0.72-1.25); EST GLOMERULAR FILTRATION RATE > 60 ML/MIN (60-); GLUCOSE 157 mg/dL (74-118); HDL CHOLESTEROL 34 MG/DL (40-60); LDL CHOLESTEROL 130 MG/DL (60-130); MAGNESIUM 1.8 MG/DL (1.3-2.1); POTASSIUM 4.2 mmol/L (3.5-5.1); SODIUM 133 mmol/L (136-145); TRIGLYCERIDES 176 MG/DL (0-149)
[2019-07-18 05:04] LABS: THYROID STIMULATING HORMONE 4.538 uIU/mL (0.350-4.940)
[2019-07-18] MEDS ORDERED: DEXTROSE 50% SYRINGE 50 ML IV PRN (05:15)
[2019-07-18] MEDS ORDERED: ASPIRIN CHEW81 MG PO (05:19)
[2019-07-18] MEDS ORDERED: FAMOTIDINE 20 MG TAB PO SCH (07:30)
[2019-07-18] MEDS: INSULIN REGULAR, HUMAN 100 UNIT/1 ML 3ML VIAL SQ SCH ×2 (07:30→11:30)
[2019-07-18 08:14] VITALS: BP 127/79
[2019-07-18] MEDS ORDERED: SITAGLIPTIN 100 MG TAB PO SCH (09:00)
[2019-07-18] MEDS ORDERED: ASPIRIN 81 MG CHEW TAB PO SCH (09:00)
[2019-07-18] MEDS ORDERED: LISINOPRIL 10 MG TAB PO SCH (09:00)
[2019-07-18] MEDS ORDERED: DOCUSATE SODIUM 100 MG CAP PO SCH (09:00)
[2019-07-18] MEDS ORDERED: GLIPIZIDE 2.5 MG TABCR PO SCH (09:00)
[2019-07-18] MEDS: INSULIN LISPRO 100 UNIT/1 ML 3ML VIAL SQ SCH ×3 (10:00→11:56)
--- NOTE | 2019-07-18 10:26 | NUR ---
GAVE PACKET OF INFORMATION WITH COMMUNITY [employer] FOR ASSISTANCE WITH LOW TO NO INCOME TO PATIENT. RESOURCES THAT PATIENT MAY BE ABLE TO FOLLOW UP UPON DISCHARGE. PT EDUCATED ON EACH RESOURCE AND UNDERSTANDING HOW TO FOLLOW UP TO SEE IF QUALIFIED FOR EACH RESOURCE.
[2019-07-18 12:07] VITALS: BP 145/68
[2019-07-18] MEDS ORDERED: ONDANSETRON HCL 4 MG ORAL DISINTEGRATING TAB PO PRN (12:15)
--- NOTE | 2019-07-23 09:05 | Discharge Summary ---
ADMISSION DIAGNOSES: 1. Chest pain. 2. Type 2 diabetes. 3. Hypertension. 4. Obesity with a BMI of 33.1. DISCHARGE DIAGNOSES: 1. Chest pain. 2. Type 2 diabetes. 3. Hypertension. 4. Obesity with a BMI of 33.1. 5. Rule out acute coronary syndrome plus hypertriglyceridemia. HISTORY: Type 2 diabetes and hypertension. SURGICAL HISTORY: None. FAMILY HISTORY: None. SOCIAL HISTORY: None. HOSPITAL COURSE: A 63-year-old male admits with complaints of left-sided chest pain that began around 4 p.m. while walking around the store. He denies nausea, vomiting, dizziness, or diaphoresis. Pain is resolved currently on admission assessment. Echo came back with an EF of 50% to 55%. Troponins were negative x3. A1c was 7.7. Chest x-ray showed low lung volumes with vascular crowding or subsegmental atelectasis in the bases. Cardiology saw the patient and cleared him for discharge. Triglycerides were elevated at 176. The patient was advised to adopt a low-fat, low-cholesterol diet. He was given a new prescription for aspirin and will follow up with primary care in 1 to 2 weeks. The patient understands discharge instructions and agrees to plan. Vital signs stable, the patient afebrile. Dictated by Mikala Olivera NP MD THELMA Tubbs/PAYAML /[id number]
== END 2019-07-18 13:58 | disposition home or self-care (01) ==
LOC: ER 10:39 → ERHOLD 12:08 → MED/SURG 16:40
PROVIDERS: ADMIT Internal Medicine; ATTEND Internal Medicine
DX: R07.9 Chest pain, unspecified (principal); E11.9 Type 2 diabetes mellitus without complications; E66.9 Obesity, unspecified; Z68.31 Body mass index [BMI] 31.0-31.9, adult; E78.1 Pure hyperglyceridemia; I10 Essential (primary) hypertension
CPT/HCPCS: 36415 ×2; 71046; 80048; 80053; 80061; 82550 ×2; 82553 ×2; 82948 ×2; 83036; 83735; 83880; 84443; 84484 ×2; 85025 ×2; 93005; 93306; 99284; G0378 ×2; J2270; J2405

== ENCOUNTER 2019-07-23 10:37 | Emergency (ER) | payer SELFPAY ==
[~2019-07-23] VITALS: Ht 167.6 cm; Wt 93.0 kg
[~2019-07-23 10:37] MED LIST changes: +ASPIRIN CHEW81 MG PO; +BENZONATATE100 MG; +BROMPHENIR-PSE118 ML; +GLIPIZIDE ER2.5 MG; +JANUVIA100 MG; +LISINOPRIL10 MG; +METFORMIN HCL1000 MG; +OMEPRAZOLE40 MG
[2019-07-23] MEDS ORDERED: ASPIRIN 81 MG CHEW TAB PO ONE (11:00)
[2019-07-23] MEDS ORDERED: HYDROCODONE/APAP 5MG-325MG TAB PO ONE (11:00)
[2019-07-23 11:06] LABS: BASOPHILS # (AUTO) 0.1 (0.0-0.1); EOSINOPHILS # (AUTO) 0.2 (0.0-0.4); EOSINOPHILS % 2.1 % (0.0-6.0); HEMATOCRIT 41.3 % (38.2-49.6); HEMOGLOBIN 14.5 g/dL (14.0-18.0); LYMPHOCYTES # (AUTO) 1.8 (1.0-3.2); LYMPHOCYTES % 24.6 % (18.0-39.1); MEAN CORPUSCULAR HEMOGLOBIN 30.9 pg (28-32); MEAN CORPUSCULAR HGB CONC 35.1 g/dL (31-35); MEAN CORPUSCULAR VOLUME 87.9 fL (81-99); MONOCYTES # (AUTO) 0.6 (0.2-0.8); NEUTROPHILS # (AUTO) 4.7 (2.1-6.9); PLATELET COUNT 235 x10e3/uL (140-360); RED CELL DISTRIBUTION WIDTH 12.6 % (11.7-14.4)
[2019-07-23 11:22] LABS: PARTIAL THROMBOPLASTIN TIME 30.2 seconds (23.8-35.5)
[2019-07-23 11:30] LABS: ALANINE AMINOTRANSFERASE 56 IU/L (0-55); ALBUMIN 3.8 g/dL (3.5-5.0); ALKALINE PHOSPHATASE 119 IU/L (40-150); ANION GAP 12.9 mmol/L (8-16); BLOOD UREA NITROGEN 10 mg/dL (7-26); BUN/CREATININE RATIO 11 (6-25); CALCIUM 9.3 mg/dL (8.4-10.2); CARBON DIOXIDE 23 mmol/L (22-29); CHLORIDE 103 mmol/L (98-107); CREATINE KINASE 86 IU/L (30-200); CREATININE, SERUM 0.88 mg/dL (0.72-1.25); EST GLOMERULAR FILTRATION RATE > 60 ML/MIN (60-); GLUCOSE 135 mg/dL (74-118); MAGNESIUM 1.8 MG/DL (1.3-2.1); POTASSIUM 3.9 mmol/L (3.5-5.1); SODIUM 135 mmol/L (136-145)
[2019-07-23 11:35] LABS: INR 0.95; PROTHROMBIN TIME 13.2 seconds (11.9-14.5)
--- NOTE | 2019-07-23 11:52 | Diagnostic Imaging Report ---
EXAMINATION: CHEST 2 VIEWS INDICATION: ^cough, left-sided anterolateral chest wall pain ^[id number] ^1115 COMPARISON: None FINDINGS: PA and lateral views TUBES and LINES: None. LUNGS: Lungs are well inflated. Lungs are clear. There is no evidence of pneumonia or pulmonary edema. PLEURA: No pleural effusion or pneumothorax. HEART AND MEDIASTINUM: The cardiac silhouette is at the upper limit of normal in size. BONES AND SOFT TISSUES: No acute osseous lesion. Soft tissues are unremarkable. UPPER ABDOMEN: No free air under the diaphragm. IMPRESSION: No acute thoracic radiographic abnormality. Signed by: Amando Martinez MD on 07/23/2019 11:49 AM
== END 2019-07-23 12:27 | disposition home or self-care (01) ==
LOC: ER 10:37
DX: R07.89 Other chest pain (principal); R05 Cough; J20.9 Acute bronchitis, unspecified; I10 Essential (primary) hypertension; E11.9 Type 2 diabetes mellitus without complications; K21.9 Gastro-esophageal reflux disease without esophagitis
CPT/HCPCS: 36415; 71046; 80053; 82550; 82553; 83735; 83880; 84484; 85025; 85610; 85730; 93005; 99284

== ENCOUNTER 2020-11-29 00:05 | Emergency (ER) | payer OTHER ==
[~2020-11-29] VITALS: Ht 167.6 cm; Wt 93.0 kg
[2020-11-29 00:37] LABS: BASOPHILS # (AUTO) 0.1 (0.0-0.1); BASOPHILS % 0.7 % (0.0-1.0); EOSINOPHILS # (AUTO) 0.1 (0.0-0.4); EOSINOPHILS % 1.6 % (0.0-6.0); HEMOGLOBIN 14.1 g/dL (14.0-18.0); LYMPHOCYTES # (AUTO) 2.3 (1.0-3.2); LYMPHOCYTES % 30.6 % (18.0-39.1); MEAN CORPUSCULAR HEMOGLOBIN 30.2 pg (28-32); MEAN CORPUSCULAR HGB CONC 33.6 g/dL (31-35); MEAN CORPUSCULAR VOLUME 89.9 fL (81-99); MONOCYTES # (AUTO) 0.7 (0.2-0.8); MONOCYTES % 8.9 % (4.4-11.3); NEUTROPHILS # (AUTO) 4.3 (2.1-6.9); NEUTROPHILS % 57.7 % (38.7-80.0); PLATELET COUNT 211 x10e3/uL (140-360); RED BLOOD COUNT 4.67 x10e6/uL (4.3-5.7); RED CELL DISTRIBUTION WIDTH 12.8 % (11.7-14.4)
[2020-11-29 00:47] LABS: INR 0.91; PROTHROMBIN TIME 12.8 seconds (11.9-14.5)
[2020-11-29 00:55] LABS: ALBUMIN 3.8 g/dL (3.5-5.0); ALBUMIN/GLOBULIN RATIO 1.1 (0.8-2.0); ANION GAP 12.8 mmol/L (8-16); CREATININE, SERUM 0.96 mg/dL (0.72-1.25); POTASSIUM 3.8 mmol/L (3.5-5.1)
[2020-11-29] MEDS: FENTANYL CITRATE/PF 100MCG/2 ML INJ IV PRN ×2 (01:06→03:09)
[2020-11-29] MEDS ORDERED: ONDANSETRON HCL INJ 2MG/ML 2ML 2 MG/ML VIAL ONE (03:39)
[2020-11-29] MEDS ORDERED: IOPAMIDOL 370 MG/ML 200 ML INFUS..BTL INJ ONE (05:46)
[2020-11-29] MEDS ORDERED: SODIUM CHLORIDE 0.9% 50ML 50 ML ONE (05:47)
== END 2020-11-29 04:04 | disposition home or self-care (01) ==
LOC: ER 00:20
DX: R07.89 Other chest pain (principal); R10.13 Epigastric pain; S22.21XA Fracture of manubrium, initial encounter for closed fracture; V43.52XA Car driver injured in collision with other type car in traffic accident, initial encounter; Y92.488 Other paved roadways as the place of occurrence of the external cause; E11.65 Type 2 diabetes mellitus with hyperglycemia; I10 Essential (primary) hypertension; K21.9 Gastro-esophageal reflux disease without esophagitis
CPT/HCPCS: 36415; 70450; 71260; 72125; 74177; 80053; 84484; 85025; 85610; 93005; 99284; J2405; J3010; Q9967

== ENCOUNTER 2020-12-01 14:52 | Emergency (ER) | payer OTHER ==
[~2020-12-01] VITALS: Ht 167.6 cm; Wt 93.0 kg
[2020-12-01] MEDS ORDERED: SODIUM CHLORIDE 0.9% 50ML 50 ML ONE (15:29)
[2020-12-01] MEDS ORDERED: IOPAMIDOL 370 MG/ML 200 ML INFUS..BTL INJ ONE (15:30)
[2020-12-01 15:37] LABS: BASOPHILS % 0.3 % (0.0-1.0); EOSINOPHILS % 0.1 % (0.0-6.0); HEMATOCRIT 38.8 % (38.2-49.6); HEMOGLOBIN 13.4 g/dL (14.0-18.0); LYMPHOCYTES # (AUTO) 1.2 (1.0-3.2); LYMPHOCYTES % 11.7 % (18.0-39.1); MEAN CORPUSCULAR HEMOGLOBIN 29.7 pg (28-32); MEAN CORPUSCULAR HGB CONC 34.5 g/dL (31-35); MONOCYTES # (AUTO) 0.9 (0.2-0.8); MONOCYTES % 8.8 % (4.4-11.3); NEUTROPHILS # (AUTO) 7.7 (2.1-6.9); NEUTROPHILS % 78.7 % (38.7-80.0); PLATELET COUNT 206 x10e3/uL (140-360); RED BLOOD COUNT 4.51 x10e6/uL (4.3-5.7); RED CELL DISTRIBUTION WIDTH 12.3 % (11.7-14.4)
[2020-12-01 15:54] LABS: ALBUMIN 3.9 g/dL (3.5-5.0); ANION GAP 14.7 mmol/L (8-16); CREATININE, SERUM 0.78 mg/dL (0.72-1.25); POTASSIUM 3.7 mmol/L (3.5-5.1)
[2020-12-01 16:00] LABS: CREATINE KINASE MB 2.8 ng/mL (0-5.0)
[2020-12-01] MEDS ORDERED: ONDANSETRON HCL INJ 2MG/ML 2ML 2 MG/ML VIAL IV STA (16:09)
[2020-12-01] MEDS ORDERED: MORPHINE SULFATE INJ 2 MG/ML SYR IV STA (16:09)
[2020-12-01] MEDS ORDERED: FENTANYL 50 MCG/HR PATCH TOP SCH (16:45)
[2020-12-01] MEDS ORDERED: NAPROXEN250 MG PO (16:45)
[2020-12-01 18:30] VITALS: BP 154/91
== END 2020-12-01 17:40 | disposition home or self-care (01) ==
LOC: ER 15:37
DX: S22.20XA Unspecified fracture of sternum, initial encounter for closed fracture (principal); V43.52XA Car driver injured in collision with other type car in traffic accident, initial encounter; Y92.488 Other paved roadways as the place of occurrence of the external cause; E11.65 Type 2 diabetes mellitus with hyperglycemia; I10 Essential (primary) hypertension; K21.9 Gastro-esophageal reflux disease without esophagitis
CPT/HCPCS: 36415; 70450; 71260; 72125; 74177; 80053; 82550; 82553; 84484; 85025; 93005; 99284; J2270; J2405; Q9967

== ENCOUNTER 2022-07-29 14:08 | Emergency (ER) | payer MEDICARE ==
[~2022-07-29] VITALS: Ht 167.6 cm; Wt 93.0 kg
[~2022-07-29 14:08] MED LIST changes: +NAPROXEN250 MG PO
[2022-07-29] MEDS ORDERED: PATADAY2.5 ML OP (14:26)
== END 2022-07-29 15:25 | disposition home or self-care (01) ==
LOC: ER 14:14
DX: H10.10 Acute atopic conjunctivitis, unspecified eye (principal); I10 Essential (primary) hypertension; E11.9 Type 2 diabetes mellitus without complications; K21.9 Gastro-esophageal reflux disease without esophagitis
CPT/HCPCS: 99283

== ENCOUNTER 2022-10-09 13:41 | Observation (INO) | payer MEDICARE, OTHER ==
[~2022-10-09] VITALS: Ht 167.6 cm; Wt 93.0 kg
[~2022-10-09 13:41] MED LIST changes: +PATADAY2.5 ML OP
[2022-10-09 14:05] LABS: BASOPHILS # (AUTO) 0.1 (0.0-0.1); EOSINOPHILS # (AUTO) 0.1 (0.0-0.4); EOSINOPHILS % 1.5 % (0.0-6.0); HEMATOCRIT 41.6 % (38.2-49.6); HEMOGLOBIN 14.4 g/dL (14.0-18.0); LYMPHOCYTES # (AUTO) 1.9 (1.0-3.2); LYMPHOCYTES % 27.7 % (18.0-39.1); MEAN CORPUSCULAR HEMOGLOBIN 30.7 pg (28-32); MEAN CORPUSCULAR HGB CONC 34.6 g/dL (31-35); MEAN CORPUSCULAR VOLUME 88.7 fL (81-99); MONOCYTES # (AUTO) 0.6 (0.2-0.8); MONOCYTES % 8.3 % (4.4-11.3); NEUTROPHILS # (AUTO) 4.1 (2.1-6.9); NEUTROPHILS % 61.2 % (38.7-80.0); PLATELET COUNT 230 x10e3/uL (140-360); RED BLOOD COUNT 4.69 x10e6/uL (4.3-5.7); RED CELL DISTRIBUTION WIDTH 13.2 % (11.7-14.4)
[2022-10-09 14:11] LABS: INR 0.94; PARTIAL THROMBOPLASTIN TIME 30.1 seconds (23.8-35.5); PROTHROMBIN TIME 13.1 seconds (11.9-14.5)
[2022-10-09 14:21] LABS: ALANINE AMINOTRANSFERASE 30 IU/L (0-55); ALBUMIN 3.9 g/dL (3.5-5.0); ALBUMIN/GLOBULIN RATIO 1.1 (0.8-2.0); ALKALINE PHOSPHATASE 119 IU/L (40-150); BLOOD UREA NITROGEN 14 mg/dL (7-26); BUN/CREATININE RATIO 15 (6-25); CALCIUM 9.2 mg/dL (8.4-10.2); CARBON DIOXIDE 24 mmol/L (22-29); CHLORIDE 103 mmol/L (98-107); CREATINE KINASE 72 IU/L (30-200); CREATININE, SERUM 0.91 mg/dL (0.72-1.25); GLUCOSE 276 mg/dL (74-118); SODIUM 136 mmol/L (136-145)
[2022-10-09] MEDS ORDERED: IOPAMIDOL 370 MG/ML 100 ML INFUS..BTL INJ ONE (14:36)
[2022-10-09] MEDS ORDERED: SODIUM CHLORIDE 0.9% 100 ML ONE (14:41)
[2022-10-09] MEDS ORDERED: ASPIRIN 81 MG CHEW TAB PO ONE (17:15)
[2022-10-09] MEDS ORDERED: DEXTROSE 50% SYRINGE 50 ML IV PRN (17:30)
[2022-10-09] MEDS ORDERED: NITROGLYCERIN 0.4 MG SUBL SL PRN (17:30)
[2022-10-09] MEDS ORDERED: ONDANSETRON HCL INJ 2MG/ML 2ML 2 MG/ML VIAL IV PRN (17:30)
[2022-10-09] MEDS: FAMOTIDINE 20 MG/2 ML VIAL IV SCH (19:14)
[2022-10-09] MEDS: INSULIN LISPRO 100 UNIT/1 ML 3ML VIAL SQ SCH (21:00)
[2022-10-09] MEDS: HYDRALAZINE HCL 10 MG TAB PO SCH (22:36)
[2022-10-09 23:03] LABS: CREATINE KINASE 127 IU/L (30-200)
[2022-10-10] VITALS (8 sets, daily range): BP systolic 123–166; BP diastolic 69–91; PULSE 42–55; RESP 16–20; TEMP 97.5–98.1; O2SAT 98–100
[2022-10-10 04:59] LABS: BASOPHILS # (AUTO) 0.1 (0.0-0.1); EOSINOPHILS # (AUTO) 0.2 (0.0-0.4); EOSINOPHILS % 2.1 % (0.0-6.0); HEMATOCRIT 38.6 % (38.2-49.6); HEMOGLOBIN 13.5 g/dL (14.0-18.0); LYMPHOCYTES # (AUTO) 2.2 (1.0-3.2); LYMPHOCYTES % 28.7 % (18.0-39.1); MEAN CORPUSCULAR HEMOGLOBIN 30.5 pg (28-32); MEAN CORPUSCULAR VOLUME 87.3 fL (81-99); MONOCYTES # (AUTO) 0.6 (0.2-0.8); MONOCYTES % 8.1 % (4.4-11.3); NEUTROPHILS # (AUTO) 4.7 (2.1-6.9); PLATELET COUNT 210 x10e3/uL (140-360); RED BLOOD COUNT 4.42 x10e6/uL (4.3-5.7); RED CELL DISTRIBUTION WIDTH 12.8 % (11.7-14.4)
[2022-10-10 05:16] LABS: ALBUMIN 3.6 g/dL (3.5-5.0); ALBUMIN/GLOBULIN RATIO 1.1 (0.8-2.0); ANION GAP 12.9 mmol/L (8-16); CALCIUM 9.2 mg/dL (8.4-10.2); CHOL/HDL RATIO 5.3 (3.9-4.7); CREATININE, SERUM 0.76 mg/dL (0.72-1.25); POTASSIUM 3.9 mmol/L (3.5-5.1)
[2022-10-10] MEDS: FAMOTIDINE 20 MG/2 ML VIAL IV SCH ×2 (05:36→17:07)
[2022-10-10] MEDS: HYDRALAZINE HCL 10 MG TAB PO SCH ×2 (05:37→14:08)
[2022-10-10] MEDS: INSULIN LISPRO 100 UNIT/1 ML 3ML VIAL SQ SCH ×4 (07:30→21:00)
[2022-10-10] MEDS: ASPIRIN 81 MG ENTERIC COATED PO SCH (08:52)
[2022-10-10] MEDS: PANTOPRAZOLE SOD 40 MG TABEC PO SCH (08:52)
[2022-10-10] MEDS ORDERED: ASPIRIN 81 MG CHEW TAB PO SCH (09:00)
[2022-10-10] MEDS: HYDRALAZINE HCL 25 MG TAB PO SCH ×2 (15:02→21:09)
[2022-10-10] MEDS ORDERED: ENOXAPARIN SOD INJ 40 MG/0.4 ML SYR SC SCH (17:00)
[2022-10-10] MEDS ORDERED: ATORVASTATIN 40 MG TAB PO SCH (21:00)
[2022-10-11] VITALS: BP 121/77; PULSE 53; RESP 20; TEMP 98; O2SAT 98
[2022-10-11 04:00] VITALS: BP 121/74; PULSE 57; RESP 20; TEMP 98; O2SAT 99
[2022-10-11] MEDS: FAMOTIDINE 20 MG/2 ML VIAL IV SCH (05:07)
[2022-10-11] MEDS: HYDRALAZINE HCL 25 MG TAB PO SCH (05:08)
[2022-10-11] MEDS: INSULIN LISPRO 100 UNIT/1 ML 3ML VIAL SQ SCH (07:30)
[2022-10-11 08:09] VITALS: BP 129/64; PULSE 54; RESP 19; TEMP 98.1; O2SAT 97
[2022-10-11] MEDS ORDERED: CLOPIDOGREL BISULFATE 75 MG TAB PO ONE (08:15)
[2022-10-11] MEDS: PANTOPRAZOLE SOD 40 MG TABEC PO SCH (08:31)
[2022-10-11] MEDS: ASPIRIN 81 MG ENTERIC COATED PO SCH (08:31)
[2022-10-11 08:36] VITALS: BP 129/64; PULSE 54; RESP 19; TEMP 98.1; O2SAT 97
[2022-10-11] MEDS ORDERED: LISINOPRIL 10 MG TAB PO SCH (09:00)
[2022-10-11] MEDS ORDERED: ONDANSETRON HCL 4 MG ORAL DISINTEGRATING TAB PO PRN (10:15)
[2022-10-11] MEDS ORDERED: FAMOTIDINE 20 MG TAB PO SCH (16:30)
[2022-10-11] MEDS ORDERED: PLAVIX75 MG PO (18:24)
[2022-10-11] MEDS ORDERED: ATORVASTATIN CA40 MG PO (18:24)
[2022-10-11] MEDS ORDERED: HYDRALAZINE HCL10 MG PO (18:24)
[2022-10-11] MEDS ORDERED: ASPIRIN81 MG PO (18:24)
== END 2022-10-11 11:30 | disposition home or self-care (01) ==
LOC: ER 14:45 → ERHOLD 17:22 → MED/SURG 23:48
PROVIDERS: ADMIT Internal Medicine; ATTEND Internal Medicine
DX: G45.9 Transient cerebral ischemic attack, unspecified (principal); I66.29 Occlusion and stenosis of unspecified posterior cerebral artery; R00.1 Bradycardia, unspecified; I10 Essential (primary) hypertension; E11.9 Type 2 diabetes mellitus without complications; E78.5 Hyperlipidemia, unspecified; R07.9 Chest pain, unspecified; E66.9 Obesity, unspecified; K21.9 Gastro-esophageal reflux disease without esophagitis; W19.XXXA Unspecified fall, initial encounter; Z20.822 Contact with and (suspected) exposure to COVID-19; Z88.0 Allergy status to penicillin; Z79.82 Long term (current) use of aspirin; Z79.84 Long term (current) use of oral hypoglycemic drugs; Z79.899 Other long term (current) drug therapy; Z68.33 Body mass index [BMI] 33.0-33.9, adult
CPT/HCPCS: 0223U; 36415 ×3; 70450; 70496; 70498; 71045; 80053 ×2; 80061; 82550 ×2; 82553 ×2; 82948 ×3; 83036; 84484 ×2; 85025 ×2; 85610; 85730; 93005; 93306; 93880; 99284; G0378 ×3; J1650; J7050; Q9967; S0164 ×2